=== PATIENT | female | born 1995 | race Caucasian/White ===

== ENCOUNTER 2021-05-27 19:03 | Emergency (ER) | payer BC, SELFPAY ==
--- NOTE | 2021-05-27 19:15 | DI.RAD_ITS ---
Exam(s) XR ELBOW LT COMPLETE EXAM: XR ELBOW LT COMPLETE CLINICAL HISTORY: R/O Fracture TECHNIQUE: COMPARISON: No exams were available for comparison FINDINGS: Three views were obtained. There appears to be a joint effusion or hemarthrosis. There is deformity at the capitellum laterally, possibility of a small impaction fracture is raised. Additional evalua tion with CT may be obtained if clinically indicated. No other gross fracture identified. IMPRESSION: RADIATION DOSE DELIVERED: Total DLP
[2021-05-27 19:20] VITALS: BP 113/71; PULSE 69; RESP 16; TEMP 36.8; O2SAT 98
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
--- NOTE | 2021-05-27 20:45 | DI.VRAD_ITS ---
PROCEDURE INFORMATION: Exam: XR Left Elbow Exam date and time: 05/27/2021 7:31 PM Age: 26 years old Clinical indication: Other: R/O fracture TECHNIQUE: Imaging protocol: XR Left elbow. Views: 3 or more views. COMPARISON: No relevant prior studies available. FINDINGS: Bones/joints: There appears to be some hypertrophic spurring or possible loose body at the radiohumeral articulation. Tiny avulsion fracture not excludable. Prominent joint effusion noted. Soft tissues: Normal. IMPRESSION: Joint effusion. Asymmetric opacity at the radiohumeral articulation, spur versus loose body versus subtle avulsion fracture. Dictated and Authenticated by: Sarah Everett MD. Ordering:SILAS Royal MD
--- NOTE | 2021-05-30 15:18 | NUR.NOTE ---
Addendum entered by Natali Stewart 05/30/21 15:45: Patient ortho referral, xray report, and provider note faxed to [facility]. Natali Stewart P [phone] F [phone] Original Note: Nursing Note: Reprinted Ortho referral so that Medical Records can fax to [facility]. Natali Stewart
== END 2021-05-27 21:10 | disposition home or self-care (01) ==
PROVIDERS: Emergency Provider Registered Nurse Emergency; PCP Internal Medicine
DX: S42.402A Unspecified fracture of lower end of left humerus, initial encounter for closed fracture (principal); V19.3XXA Pedal cyclist (driver) (passenger) injured in unspecified nontraffic accident, initial encounter
CPT/HCPCS: 81025; 99283; 73080